=== PATIENT | male | born 1955 | race Caucasian/White ===

== ENCOUNTER 2017-02-14 09:18 | Day surgery (SDC) | payer OTHER ==
[~2017-02-14 09:18] MED LIST: FLOMAX 0.4MG C0.4 MG PO; JALYN 0.5 MG-0.1 CAP PO; TOVIAZ4 MG PO
[2017-02-14 12:25] VITALS: BP 146/99
--- NOTE | 2017-02-14 19:28 | Operative Note-Urology ---
Procedure/Operative Record Procedure DATE OF PROCEDURE: 02/14/17 PREOPERATIVE DIAGNOSIS: Prostate obstruction POSTOPERATIVE DIAGNOSIS: Prostate enlargement with trilobar obstruction PROCEDURE PERFORMED: Flexible cystoscopy SURGEON: Kenney Farias ANESTHESIA: Intraurethral Xylocaine jelly BRIEF HISTORY: Patient is 61 years of age. He currently is taking finasteride as well as tamsulosin. He still has nocturia 3-4 times per night. He presents today for further evaluation. OPERATIVE NOTE: In the supine position the genital area was prepped and draped in standard fashion. Xylocaine jelly was instilled in the urethra and penile clamp placed. Flexible cystoscope was then introduced. Pendulous urethra was unremarkable. Bulbous urethra was unremarkable. Prostate revealed bilateral lobar hypertrophy but significant median lobe obstructing at the bladder neck. Scope was introduced into the bladder. His bladder was coarsely trabeculated. Ureteral orifices were situated in the normal position and appeared to reflux clear urine. Scope was retroflexed of the bladder neck. Median lobe confirmed once again. Was withdrawn. EBL (ml): 0 IMPRESSION: Prostate enlargement with trilobar obstruction. PLAN: We discussed that to further improve his urination symptoms it would require removal of prostate tissue. I suggest green light laser vaporization of prostate if he wishes to proceed. Otherwise we will continue on current therapy. He will consider this. at 1927
== END 2017-02-14 10:51 | disposition home or self-care (01) ==
LOC: SDC 09:18
PROVIDERS: Urology
PROC: 0TJB8ZZ Inspection of Bladder, Via Natural or Artificial Opening Endoscopic (ICD-10-PCS; principal; 2017-02-14 10:00)
DX: N40.1 Benign prostatic hyperplasia with lower urinary tract symptoms (principal); R35.1 Nocturia